=== PATIENT | male | born 2000 | race Caucasian/White ===

== ENCOUNTER 2025-07-03 08:56 | Outpatient (CLI) | payer OTHER | END 2025-07-03 08:57 | disposition home or self-care (01) | LOC: CSHSLEEP 08:56 | PROVIDERS: ATTEND Internal Medicine | DX: G47.33 Obstructive sleep apnea (adult) (pediatric) (principal); R51.9 Headache, unspecified; F41.9 Anxiety disorder, unspecified; I10 Essential (primary) hypertension | CPT/HCPCS: 95810 ==